=== PATIENT | female | born 1950 | race Caucasian/White ===

== ENCOUNTER → 2017-09-04 | Outpatient (CLI) | payer MEDICARE ==
[2017-09-04 10:10] LABS: BASO # 0.1 10*3/uL (0.0-0.1); BASO % 0.8 % (0.0-1.0); EOS # 0.1 10*3/uL (0.0-0.4); EOS % 0.8 % (1.0-4.0); HEMATOCRIT 37.3 % (37.0-47.0); LYMPH # 1.5 10*3/uL (1.3-4.4); LYMPH % 13.9 % (27.0-41.0); MEAN CELL VOLUME 93.7 fl (81.0-99.0); MEAN CORPUSCULAR HGB 30.2 pg (27.0-31.0); MEAN CORPUSCULAR HGB CONC 32.2 g/dl (33.0-37.0); MEAN PLATELET VOLUME 8.3 fl (9.6-12.3); MONO # 0.5 10*3/uL (0.1-1.0); MONO % 4.9 % (3.0-9.0); NEUT # 8.3 10*3/uL (2.3-7.9); NEUT % 79.2 % (47.0-73.0); PLATELET COUNT AUTOMATED 449 10*3/uL (130-400); RED BLOOD COUNT 3.98 10*6/uL (4.10-5.10); RED CELL DISTRI WIDTH 12.9 % (0-14.5); WHITE BLOOD COUNT 10.4 10*3/uL (4.8-10.8)
[2017-09-04 10:39] LABS: ALBUMIN 3.8 gm/dl (3.1-4.5); ALKALINE PHOSPHATASE 106 U/L (45-117); BUN 7 mg/dl (7-24); CHLORIDE 108 mmol/L (98-107); CHOLESTEROL 142 mg/dL (<200); CREATININE 0.56 mg/dL (0.55-1.02); HDL CHOLESTEROL 45 mg/dl (40-60); LDL CHOLESTEROL 67 mg/dL (9-159); POTASSIUM 3.5 mmol/L (3.5-5.1); SGOT/AST 16 IU/L (3-35); SGPT/ALT 21 U/L (12-78); SODIUM 144 mmol/L (136-145); TOTAL PROTEIN 7.8 gm/dL (6.4-8.2); TRIGLYCERIDES 148 mg/dl (<150); VLDL CHOLESTEROL 30 mg/dL (6-40)
== END | disposition home or self-care (01) ==
LOC: LAB 09:43
PROVIDERS: Family Medicine
DX: Z13.220 Encounter for screening for lipoid disorders (principal); M25.561 Pain in right knee; I10 Essential (primary) hypertension; E78.5 Hyperlipidemia, unspecified; E55.9 Vitamin D deficiency, unspecified

== ENCOUNTER → 2024-11-14 | Outpatient (CLI) | payer MEDICARE ==
[~2024-11-14] MED LIST: DOXYCYCLINE HY100 M3 PO; RISPERIDONE M-0.5 MG OGT
== END | disposition home or self-care (01) ==
LOC: WOUNDCARE 00:52
PROVIDERS: ATTEND Nurse Practitioner Family
DX: L89.321 Pressure ulcer of left buttock, stage 1 (principal); E43 Unspecified severe protein-calorie malnutrition; M21.371 Foot drop, right foot; J44.9 Chronic obstructive pulmonary disease, unspecified; D50.9 Iron deficiency anemia, unspecified; G30.9 Alzheimer's disease, unspecified; Z79.899 Other long term (current) drug therapy

== ENCOUNTER → 2024-11-25 | Outpatient (CLI) | payer MEDICARE | END | disposition home or self-care (01) | LOC: LAB 08:58 | PROVIDERS: ATTEND Nurse Practitioner Family | DX: R19.7 Diarrhea, unspecified (principal) ==

== ENCOUNTER → 2025-02-10 | Outpatient (CLI) | payer MEDICARE | END | disposition home or self-care (01) | LOC: RAD 07:41 | PROVIDERS: ATTEND Nurse Practitioner Family | DX: Z13.820 Encounter for screening for osteoporosis (principal); M81.0 Age-related osteoporosis without current pathological fracture; Z78.0 Asymptomatic menopausal state ==

== ENCOUNTER → 2025-07-17 | Outpatient (CLI) | payer MEDICARE ==
[~2025-07-17] MED LIST changes: +Depakote250 MG PO; +FOSAMAX70 M1 PO; +HYDROXYZINE HCL25 MG PO; +NAMENDA-5 PO; +RIVASTIGMINE TAR6 M1 PO; +TRAZODONE50 MG PO
== END | disposition home or self-care (01) ==
LOC: RAD 11:14
PROVIDERS: ATTEND Nurse Practitioner Family
DX: M25.472 Effusion, left ankle (principal); R60.0 Localized edema

== ENCOUNTER 2025-07-19 12:35 | Inpatient (IN) | payer MEDICARE ==
[~2025-07-19] VITALS: Ht 147.3 cm; Wt 34.7 kg
[2025-07-19] VITALS (11 sets, daily range): BP systolic 117–181; BP diastolic 56–76
[~2025-07-19 12:35] MED LIST changes: -Depakote250 MG PO; -FOSAMAX70 M1 PO; -HYDROXYZINE HCL25 MG PO; -NAMENDA-5 PO; -RIVASTIGMINE TAR6 M1 PO; -TRAZODONE50 MG PO
[2025-07-19] MEDS ORDERED: ROCURONIUM BROMIDE 50 MG/5 ML SYRINGE IV ONE (12:50)
[2025-07-19] MEDS ORDERED: ETOMIDATE 20 MG/10 ML VIAL IV ONE ×2 (12:50→13:31)
[2025-07-19] MEDS ORDERED: PROPOFOL 50 ML IV SCH (12:50)
[2025-07-19 13:29] LABS: ABG O2 SATURATION 95.6 % (94.0-98.0); ARTERIAL BLOOD GAS PH 7.509 (7.350-7.450); ARTERIAL BLOOD GAS PO2 81.9 mmHg (83.0-108.0)
[2025-07-19 13:31] LABS: ABG BASE EXCESS 3.5 mmol/L (-2.0-3.0)
[2025-07-19 13:34] LABS: BILIRUBIN 1+ (Negative); BLOOD 2+ (Negative); CLARITY Turbid (Clear); COLOR Orange (Yellow); KETONE 1+ (Negative); LEUKO ESTERASE 3+ (Negative); NITRITE Negative (Negative); PH 7.0 (4.5-8.0); SPECIFIC GRAVITY 1.025 (1.001-1.030); UROBILINOGEN 2.0 E.U./dl (0.0-1.0)
[2025-07-19 13:40] LABS: MEAN CELL VOLUME 99.5 fl (81.0-99.0); MEAN CORPUSCULAR HGB 31.9 pg (27.0-31.0); MEAN PLATELET VOLUME 8.6 fl (9.6-12.3); NUCLEATED RED BLOOD CELL 0.0 % (0.0-0.0); NUCLEATED RED BLOOD CELL 0.0 10*3/uL (0.0-0.0); PLATELET COUNT AUTOMATED 241 10*3/uL (130-400); RED CELL DISTRI WIDTH 13.1 % (0-14.5)
[2025-07-19 13:49] LABS: MANUAL DIFF REFLEX YES
[2025-07-19 13:56] LABS: BACTERIA 2+; WBC TNTC wbc/hpf (0-5)
[2025-07-19 13:58] LABS: BUN 8 mg/dl (9-23)
[2025-07-19 13:59] LABS: SGPT/ALT < 7 U/L (5-49)
[2025-07-19 14:00] LABS: ACT PARTIAL THROMBO TIME 30.4 SECONDS (20.0-32.1)
[2025-07-19 14:04] LABS: PLATELET SUFFICIENCY NORMAL (NORMAL)
[2025-07-19] MEDS ORDERED: SODIUM CHLORIDE 0.9% 1,000 ML IV ONE ×4 (14:15→21:40)
[2025-07-19] MEDS ORDERED: Acetaminophen/Hydrocodone 5 MG/325 MG TABLET PO PRN (18:10)
[2025-07-19] MEDS ORDERED: BISACODYL 5 MG TAB PO PRN (18:10)
[2025-07-19] MEDS ORDERED: Ondansetron Hydrochloride 4 MG/2 ML VIAL IV PRN (18:10)
[2025-07-19] MEDS ORDERED: ACETAMINOPHEN 650 MG SUPP R PRN (18:10)
[2025-07-19] MEDS ORDERED: ACETAMINOPHEN 325 MG TAB PO PRN (18:10)
[2025-07-19] MEDS ORDERED: BISACODYL 10 MG SUPP R PRN (18:10)
[2025-07-19] MEDS ORDERED: NAMENDA-5 PEG (18:54)
[2025-07-19] MEDS ORDERED: TRAZODONE50 MG PO (18:54)
[2025-07-19] MEDS ORDERED: HYDROXYZINE HCL25 MG PO (18:56)
[2025-07-19] MEDS ORDERED: Depakote250 MG PO (18:56)
[2025-07-19] MEDS ORDERED: FOSAMAX70 M1 PO (18:57)
[2025-07-19] MEDS ORDERED: RIVASTIGMINE TAR6 M1 PEG (18:58)
[2025-07-19 22:04] LABS: URINE AMPHETAMINES Negative (1000ng/ml); URINE BARBITURATES Negative (200ng/ml); URINE BENZODIAZEPINES Negative (200ng/ml); URINE CANNABINOIDS (THC) Negative (50ng/ml); URINE COCAINE Negative (300ng/ml); URINE METHADONE Negative (300ng/ml); URINE OPIATES Negative (300ng/ml); URINE PHENCYCLIDINE Negative (25ng/ml)
[2025-07-19] MEDS ORDERED: AZITHROMYCIN 250 ML IV SCH (23:00)
[2025-07-20] VITALS: BP 120/51
[2025-07-20 04:00] VITALS: BP 108/54
[2025-07-20 04:22] LABS: BASO # 0.1 10*3/uL (0.0-0.1); BASO % 0.4 % (0.0-1.0); EOS # 0.0 10*3/uL (0.0-0.4); EOS % 0.1 % (1.0-4.0); MEAN CELL VOLUME 98.3 fl (81.0-99.0); MEAN CORPUSCULAR HGB 32.6 pg (27.0-31.0); MEAN PLATELET VOLUME 8.5 fl (9.6-12.3); MONO # 1.4 10*3/uL (0.1-1.0); MONO % 8.4 % (3.0-9.0); NEUT # 14.2 10*3/uL (2.3-7.9); NEUT % 84.6 % (47.0-73.0); NUCLEATED RED BLOOD CELL 0.0 % (0.0-0.0); NUCLEATED RED BLOOD CELL 0.0 10*3/uL (0.0-0.0); PLATELET COUNT AUTOMATED 181 10*3/uL (130-400); RED CELL DISTRI WIDTH 13.3 % (0-14.5)
[2025-07-20 04:46] LABS: BUN 7 mg/dl (9-23); FREE T4 0.98 ng/dl (0.89-1.76); LDL CHOLESTEROL 64 mg/dL (9-159)
[2025-07-20 05:10] LABS: SGPT/ALT < 7 U/L (5-49)
[2025-07-20 06:31] LABS: ACT PARTIAL THROMBO TIME 34.4 SECONDS (20.0-32.1)
[2025-07-20 07:36] LABS: ABG BASE EXCESS 0.7 mmol/L (-2.0-3.0); ABG O2 SATURATION 97.4 % (94.0-98.0); ARTERIAL BLOOD GAS PH 7.478 (7.350-7.450); ARTERIAL BLOOD GAS PO2 99.6 mmHg (83.0-108.0)
[2025-07-20 07:46] LABS: VITAMIN D, 25-HYDROXY 18.9 ng/mL (30-100)
[2025-07-20 08:00] VITALS: BP 105/54
[2025-07-20] MEDS ORDERED: POTASSIUM CHLORIDE IN WATER 100 ML IV SCH (08:00)
[2025-07-20 12:00] VITALS: BP 112/49
[2025-07-20 12:32] LABS: ABG BASE EXCESS -0.9 mmol/L (-2.0-3.0); ABG O2 SATURATION 97.4 % (94.0-98.0); ARTERIAL BLOOD GAS PH 7.468 (7.350-7.450); ARTERIAL BLOOD GAS PO2 87.3 mmHg (83.0-108.0)
[2025-07-20 13:49] LABS: BUN 8 mg/dl (9-23)
[2025-07-20 16:00] VITALS: BP 123/65
[2025-07-20 16:00] LABS: ABG BASE EXCESS 0.7 mmol/L (-2.0-3.0); ABG O2 SATURATION 96.6 % (94.0-98.0); ARTERIAL BLOOD GAS PH 7.495 (7.350-7.450); ARTERIAL BLOOD GAS PO2 81.4 mmHg (83.0-108.0)
[2025-07-20 20:00] VITALS: BP 125/61
[2025-07-20] MEDS ORDERED: Vancomycin Hydrochloride 500 MG in SODIUM CHLORIDE 0.9% 100 ML IV SCH (20:00)
[2025-07-21] VITALS: BP 99/64
[2025-07-21 04:00] VITALS: BP 132/52
[2025-07-21 05:31] LABS: BUN 8 mg/dl (9-23)
[2025-07-21 06:38] LABS: BASO # 0.1 10*3/uL (0.0-0.1); BASO % 0.4 % (0.0-1.0); EOS # 0.0 10*3/uL (0.0-0.4); EOS % 0.1 % (1.0-4.0); MEAN CORPUSCULAR HGB 32.7 pg (27.0-31.0); MEAN PLATELET VOLUME 9.3 fl (9.6-12.3); MONO # 1.4 10*3/uL (0.1-1.0); MONO % 7.5 % (3.0-9.0); NEUT # 15.8 10*3/uL (2.3-7.9); NEUT % 86.2 % (47.0-73.0); NUCLEATED RED BLOOD CELL 0.0 % (0.0-0.0); NUCLEATED RED BLOOD CELL 0.0 10*3/uL (0.0-0.0); RED CELL DISTRI WIDTH 13.1 % (0-14.5)
[2025-07-21 06:39] LABS: MEAN CELL VOLUME 101.6 fl (81.0-99.0); PLATELET COUNT AUTOMATED 274 10*3/uL (130-400)
[2025-07-21 08:00] VITALS: BP 105/54
[2025-07-21] MEDS ORDERED: ACETAMINOPHEN 325 MG/10.15 ML UDC PO PRN (09:15)
[2025-07-21 12:00] VITALS: BP 133/62
[2025-07-21] MEDS ORDERED: BARIUM SULFATE 98% 340 GM BOT PO ONE ×2 (12:55→13:21)
[2025-07-21] MEDS ORDERED: POTASSIUM CHLORIDE IN WATER 100 ML IV SCH (13:00)
[2025-07-21 16:00] VITALS: BP 133/62
[2025-07-21 20:00] VITALS: BP 134/55
[2025-07-22] VITALS: BP 132/52
[2025-07-22 04:00] VITALS: BP 117/53
[2025-07-22 07:30] LABS: BASO % 0.3 % (0.0-1.0); EOS % 0.1 % (1.0-4.0); NUCLEATED RED BLOOD CELL 0.0 % (0.0-0.0); NUCLEATED RED BLOOD CELL 0.0 10*3/uL (0.0-0.0)
[2025-07-22 07:35] LABS: BASO # 0.1 10*3/uL (0.0-0.1); EOS # 0.0 10*3/uL (0.0-0.4); MEAN CORPUSCULAR HGB 32.6 pg (27.0-31.0); MEAN PLATELET VOLUME 8.7 fl (9.6-12.3); MONO # 1.3 10*3/uL (0.1-1.0); MONO % 8.6 % (3.0-9.0); NEUT # 12.1 10*3/uL (2.3-7.9); NEUT % 82.4 % (47.0-73.0); PLATELET COUNT AUTOMATED 271 10*3/uL (130-400); RED CELL DISTRI WIDTH 13.2 % (0-14.5)
[2025-07-22 07:40] LABS: MEAN CELL VOLUME 97.4 fl (81.0-99.0)
[2025-07-22 07:52] LABS: BUN 7 mg/dl (9-23)
[2025-07-22 08:00] VITALS: BP 129/59
[2025-07-22] MEDS ORDERED: POTASSIUM CL D5/.45NS SOL. 1,000 ML IV SCH (10:55)
[2025-07-22 12:00] VITALS: BP 139/49
[2025-07-22 16:00] VITALS: BP 133/51
[2025-07-22] MEDS ORDERED: POTASSIUM CHLORIDE IN WATER 100 ML IV SCH (16:00)
[2025-07-22] MEDS ORDERED: Vancomycin Hydrochloride 500 MG in SODIUM CHLORIDE 0.9% 100 ML IV SCH (16:00)
[2025-07-22 20:00] VITALS: BP 134/53
[2025-07-23] VITALS: BP 114/62
[2025-07-23 06:17] LABS: BASO # 0.1 10*3/uL (0.0-0.1); BASO % 0.5 % (0.0-1.0); EOS # 0.1 10*3/uL (0.0-0.4); EOS % 0.7 % (1.0-4.0); MEAN CELL VOLUME 97.2 fl (81.0-99.0); MEAN CORPUSCULAR HGB 32.1 pg (27.0-31.0); MEAN PLATELET VOLUME 8.7 fl (9.6-12.3); MONO # 1.4 10*3/uL (0.1-1.0); MONO % 9.8 % (3.0-9.0); NEUT # 10.8 10*3/uL (2.3-7.9); NEUT % 75.9 % (47.0-73.0); NUCLEATED RED BLOOD CELL 0.0 % (0.0-0.0); NUCLEATED RED BLOOD CELL 0.0 10*3/uL (0.0-0.0); PLATELET COUNT AUTOMATED 289 10*3/uL (130-400); RED CELL DISTRI WIDTH 13.2 % (0-14.5)
[2025-07-23 06:47] LABS: BUN < 5 mg/dl (9-23)
[2025-07-23 08:00] VITALS: BP 127/62
[2025-07-23] MEDS ORDERED: POTASSIUM CL D5/.45NS SOL. 1,000 ML IV ONE ×2 (10:40→18:25)
[2025-07-23] MEDS ORDERED: FOAM BANDAGE 5X5 T ONE (11:09)
[2025-07-23] MEDS ORDERED: LEPTOSPERMUM HONEY 0.5 OZ TUBE T ONE (11:09)
[2025-07-23 12:00] VITALS: BP 132/73
[2025-07-23 16:00] VITALS: BP 118/90
[2025-07-23] MEDS ORDERED: VANCOMYCIN/WATER FOR INJ (PEG) 150 ML IV SCH (16:04)
[2025-07-23 20:00] VITALS: BP 129/51
[2025-07-24] VITALS (9 sets, daily range): BP systolic 107–149; BP diastolic 48–87
[2025-07-24 06:31] LABS: MANUAL DIFF REFLEX YES; MEAN CELL VOLUME 97.8 fl (81.0-99.0); MEAN CORPUSCULAR HGB 32.3 pg (27.0-31.0); MEAN PLATELET VOLUME 8.8 fl (9.6-12.3); NUCLEATED RED BLOOD CELL 0.0 % (0.0-0.0); NUCLEATED RED BLOOD CELL 0.0 10*3/uL (0.0-0.0); PLATELET COUNT AUTOMATED 319 10*3/uL (130-400); RED CELL DISTRI WIDTH 13.0 % (0-14.5)
[2025-07-24 07:02] LABS: BUN < 5 mg/dl (9-23)
[2025-07-24 07:03] LABS: PLATELET SUFFICIENCY NORMAL (NORMAL)
[2025-07-24] MEDS ORDERED: POTASSIUM CL D5/.45NS SOL. 1,000 ML IV SCH (07:30)
[2025-07-24] MEDS ORDERED: Lactated Ringer's Solution 500 ML IV ONE (09:34)
[2025-07-24] MEDS ORDERED: PROPOFOL 200 MG/20 ML VIAL IV ONE (15:51)
[2025-07-24] MEDS ORDERED: Lidocaine Hydrochloride 2% 5 ML SDV IV ONE (15:51)
[2025-07-24] MEDS ORDERED: FOAM BANDAGE 1 EACH BANDAGE T ONE (16:18)
[2025-07-24] MEDS ORDERED: ceFAZolin sodium 2 GM in SYRINGE INFUSION 20 ML IV SCH (22:00)
[2025-07-25] VITALS: BP 128/55
[2025-07-25 07:11] LABS: SGPT/ALT 40 U/L (5-49)
[2025-07-25 07:12] LABS: BUN < 5 mg/dl (9-23)
[2025-07-25 08:00] VITALS: BP 125/57
[2025-07-25] MEDS ORDERED: POTASSIUM CHLORIDE 20 MEQ TAB PO ONE (08:45)
[2025-07-25] MEDS ORDERED: FOAM BANDAGE 1 EACH BANDAGE T ONE ×2 (09:45→17:42)
[2025-07-25 12:00] VITALS: BP 148/44
[2025-07-25] MEDS ORDERED: Phosphorus/Potassium 1.45 GM PACKET PEG SCH (12:00)
[2025-07-25] MEDS ORDERED: Phosphorus/Potassium 1.45 GM PACKET PO SCH (12:00)
[2025-07-25 16:00] VITALS: BP 121/59
[2025-07-25 17:26] LABS: BUN < 5 mg/dl (9-23)
[2025-07-25 20:00] VITALS: BP 125/47
[2025-07-25] MEDS ORDERED: DIVALPROEX SODIUM 125 MG CAP PEG SCH (22:00)
[2025-07-26] VITALS: BP 131/78
[2025-07-26 08:00] VITALS: BP 106/55
[2025-07-26 08:29] LABS: BASO # 0.1 10*3/uL (0.0-0.1); BASO % 0.5 % (0.0-1.0); EOS # 0.5 10*3/uL (0.0-0.4); EOS % 3.1 % (1.0-4.0); MEAN CELL VOLUME 99.1 fl (81.0-99.0); MEAN CORPUSCULAR HGB 32.1 pg (27.0-31.0); MEAN PLATELET VOLUME 8.4 fl (9.6-12.3); MONO # 1.2 10*3/uL (0.1-1.0); MONO % 8.2 % (3.0-9.0); NEUT # 11.3 10*3/uL (2.3-7.9); NEUT % 75.2 % (47.0-73.0); NUCLEATED RED BLOOD CELL 0.0 % (0.0-0.0); NUCLEATED RED BLOOD CELL 0.0 10*3/uL (0.0-0.0); PLATELET COUNT AUTOMATED 423 10*3/uL (130-400); RED CELL DISTRI WIDTH 13.5 % (0-14.5)
[2025-07-26 09:14] LABS: SGPT/ALT 30 U/L (5-49)
[2025-07-26 09:28] LABS: BUN < 5 mg/dl (9-23)
[2025-07-26 12:00] VITALS: BP 120/57
[2025-07-26] MEDS ORDERED: MEMANTINE HCL10 MG PEG (12:23)
[2025-07-26] MEDS ORDERED: SODIUM-POTASSI1 EACH PEG (12:23)
[2025-07-26] MEDS ORDERED: ALENDRONAT70 MG/751 PO (12:23)
[2025-07-26] MEDS ORDERED: DIVALPROEX SOD125 M1 PEG (12:23)
[2025-07-26] MEDS ORDERED: EFFER-K25 MEQ PEG (12:28)
[2025-07-26] MEDS ORDERED: ALENDRONAT70 MG/751 PEG (12:28)
[2025-07-26] MEDS ORDERED: AMPICILLIN500 MG PO (12:32)
[2025-07-26] MEDS ORDERED: FOAM BANDAGE 1 EACH BANDAGE T ONE (13:55)
== END 2025-07-26 14:12 | DRG 871 ==
LOC: ED 12:35 → ICCU 17:59 → 4E 17:59 → EDHOLD 17:59 → ICCU 18:04 → 4E 07-22 15:31
PROVIDERS: Internal Medicine; Internal Medicine Critical Care Medicine; Student in an Organized Health Care Education/Training Program; ADMIT Internal Medicine; ATTEND Internal Medicine
PROC: 5A0935A Assistance with Respiratory Ventilation, Less than 24 Consecutive Hours, High Flow/Velocity Cannula (ICD-10-PCS; principal; 2025-07-19)
PROC: 0BH17EZ Insertion of Endotracheal Airway into Trachea, Via Natural or Artificial Opening (ICD-10-PCS; 2025-07-19)
PROC: 5A1935Z Respiratory Ventilation, Less than 24 Consecutive Hours (ICD-10-PCS; 2025-07-19)
PROC: BD12YZZ Fluoroscopy of Stomach using Other Contrast (ICD-10-PCS; 2025-07-21)
PROC: 0DH63UZ Insertion of Feeding Device into Stomach, Percutaneous Approach (ICD-10-PCS; 2025-07-24)
DX: A41.9 Sepsis, unspecified organism (principal); J69.0 Pneumonitis due to inhalation of food and vomit; J96.01 Acute respiratory failure with hypoxia; N39.0 Urinary tract infection, site not specified; E87.20 Acidosis, unspecified; E44.1 Mild protein-calorie malnutrition; G93.40 Encephalopathy, unspecified; Z68.1 Body mass index [BMI] 19.9 or less, adult; F03.94 Unspecified dementia, unspecified severity, with anxiety; L08.9 Local infection of the skin and subcutaneous tissue, unspecified; M81.0 Age-related osteoporosis without current pathological fracture; L89.150 Pressure ulcer of sacral region, unstageable; L89.890 Pressure ulcer of other site, unstageable; G47.00 Insomnia, unspecified; R65.20 Severe sepsis without septic shock; R13.12 Dysphagia, oropharyngeal phase; E87.6 Hypokalemia; B96.20 Unspecified Escherichia coli [E. coli] as the cause of diseases classified elsewhere; Z79.899 Other long term (current) drug therapy; Z79.01 Long term (current) use of anticoagulants; Z79.2 Long term (current) use of antibiotics; Z98.891 History of uterine scar from previous surgery; Z82.49 Family history of ischemic heart disease and other diseases of the circulatory system; Z80.3 Family history of malignant neoplasm of breast; Z82.3 Family history of stroke; Z80.8 Family history of malignant neoplasm of other organs or systems

== ENCOUNTER 2025-07-27 21:33 | Emergency (ER) | payer MEDICARE ==
[~2025-07-27] VITALS: Ht 152.4 cm; Wt 40.5 kg
[~2025-07-27 21:33] MED LIST changes: +ALENDRONAT70 MG/751 PEG; +ALENDRONAT70 MG/751 PO; +AMPICILLIN500 MG PO; +DIVALPROEX SOD125 M1 PEG; +Depakote250 MG PO; +EFFER-K25 MEQ PEG; +FOSAMAX70 M1 PO; +HYDROXYZINE HCL25 MG PO; +MEMANTINE HCL10 MG PEG; +NAMENDA-5 PEG; +RIVASTIGMINE TAR6 M1 PEG; +SODIUM-POTASSI1 EACH PEG; +TRAZODONE50 MG PO
== END 2025-07-27 23:47 | disposition home or self-care (01) ==
LOC: ED 21:33
DX: S30.0XXA Contusion of lower back and pelvis, initial encounter (principal); F03.90 Unspecified dementia, unspecified severity, without behavioral disturbance, psychotic disturbance, mood disturbance, and anxiety; Z87.440 Personal history of urinary (tract) infections; Z98.890 Other specified postprocedural states; W19.XXXA Unspecified fall, initial encounter; Y93.89 Activity, other specified; Y92.89 Other specified places as the place of occurrence of the external cause; Y99.8 Other external cause status

== ENCOUNTER 2025-08-02 17:10 | Inpatient (IN) | payer OTHER ==
[~2025-08-02] VITALS: Ht 147.3 cm; Wt 29.9 kg
[2025-08-02 17:00] VITALS: BP 120/62
[2025-08-02] MEDS ORDERED: Ondansetron Hydrochloride 4 MG/2 ML VIAL IV PRN (18:25)
[2025-08-02] MEDS ORDERED: ACETAMINOPHEN 650 MG SUPP R PRN (18:30)
[2025-08-02] MEDS ORDERED: BISACODYL 10 MG SUPP R PRN (18:30)
[2025-08-02] MEDS ORDERED: ATROPINE SULFATE 1% 2 ML BOTTLE SL PRN (18:30)
[2025-08-02] MEDS ORDERED: LORazepam 2 MG/ML VIAL IV PRN (18:30)
[2025-08-02 20:00] VITALS: BP 129/61
[2025-08-02] MEDS ORDERED: Menthol/Zinc Oxide 4 GM THIN T PRN (23:35)
[2025-08-03] VITALS: BP 115/66
[2025-08-03 08:00] VITALS: BP 116/59
[2025-08-03 12:00] VITALS: BP 124/76
[2025-08-03] MEDS ORDERED: Morphine Sulfate 10 MG/0.5 ML CONCENTRATE ORAL SYRINGE PO PRN (15:05)
[2025-08-03 16:00] VITALS: BP 130/70
[2025-08-03] MEDS ORDERED: Morphine Sulfate 10 MG/0.5 ML CONCENTRATE ORAL SYRINGE SL SCH (18:00)
[2025-08-03 20:00] VITALS: BP 118/72
[2025-08-04] VITALS: BP 124/69
[2025-08-04 08:00] VITALS: BP 132/64
[2025-08-04] MEDS ORDERED: LORazepam 1 MG TAB SL PRN (09:00)
[2025-08-04 12:00] VITALS: BP 123/69
[2025-08-04] MEDS ORDERED: Nitrofurantoin Monohydrate/N 100 MG CAP PEG SCH (18:00)
[2025-08-04 20:00] VITALS: BP 132/62
== END 2025-08-04 21:27 | disposition short-term general hospital (02) | DRG 177 ==
LOC: 5E 17:10
PROVIDERS: ADMIT Internal Medicine; ATTEND Internal Medicine
DX: J69.0 Pneumonitis due to inhalation of food and vomit (principal); E43 Unspecified severe protein-calorie malnutrition; G93.41 Metabolic encephalopathy; Z68.1 Body mass index [BMI] 19.9 or less, adult; R62.7 Adult failure to thrive; F03.90 Unspecified dementia, unspecified severity, without behavioral disturbance, psychotic disturbance, mood disturbance, and anxiety; Z51.5 Encounter for palliative care; D72.828 Other elevated white blood cell count; D75.89 Other specified diseases of blood and blood-forming organs; D75.839 Thrombocytosis, unspecified; R73.9 Hyperglycemia, unspecified; R74.8 Abnormal levels of other serum enzymes; R31.9 Hematuria, unspecified; M62.84 Sarcopenia

== ENCOUNTER 2025-08-04 21:56 | Inpatient (IN) | payer MEDICARE ==
[~2025-08-04] VITALS: Ht 147.3 cm; Wt 29.9 kg
[2025-08-04] MEDS ORDERED: BISACODYL 10 MG SUPP R PRN (22:05)
[2025-08-04] MEDS ORDERED: ACETAMINOPHEN 650 MG SUPP R PRN (22:05)
[2025-08-04] MEDS ORDERED: Ondansetron Hydrochloride 4 MG/2 ML VIAL IV PRN (22:05)
[2025-08-04] MEDS ORDERED: LORazepam 2 MG/ML VIAL IV PRN (22:10)
[2025-08-05 00:49] VITALS: BP 129/54
[2025-08-05 08:00] VITALS: BP 125/65
[2025-08-05] MEDS ORDERED: Nitrofurantoin Monohydrate/N 100 MG CAP PEG SCH (10:33)
[2025-08-05 16:00] VITALS: BP 118/54
[2025-08-05 20:00] VITALS: BP 130/67; BP 91/57
[2025-08-06] VITALS: BP 135/81
[2025-08-06 08:00] VITALS: BP 139/86
[2025-08-06 16:00] VITALS: BP 130/74
[2025-08-06 20:00] VITALS: BP 119/76
[2025-08-07] VITALS: BP 103/71
[2025-08-07 08:00] VITALS: BP 127/51
[2025-08-07 12:00] VITALS: BP 108/59
[2025-08-07 16:00] VITALS: BP 118/92
[2025-08-07] MEDS ORDERED: SODIUM CHLORIDE 0.9% 500 ML IV ONE (21:52)
== END 2025-08-07 20:00 | disposition hospice, inpatient (51) | DRG 689 ==
LOC: 5E 21:56
PROVIDERS: ADMIT Internal Medicine; ATTEND Internal Medicine
DX: N30.01 Acute cystitis with hematuria (principal); E43 Unspecified severe protein-calorie malnutrition; Z68.1 Body mass index [BMI] 19.9 or less, adult; R62.7 Adult failure to thrive; M62.84 Sarcopenia; G30.9 Alzheimer's disease, unspecified; F02.80 Dementia in other diseases classified elsewhere, unspecified severity, without behavioral disturbance, psychotic disturbance, mood disturbance, and anxiety; K80.20 Calculus of gallbladder without cholecystitis without obstruction; Z66 Do not resuscitate; Z51.5 Encounter for palliative care; Z93.1 Gastrostomy status; Z82.49 Family history of ischemic heart disease and other diseases of the circulatory system; Z82.3 Family history of stroke